=== PATIENT | male | born 1975 | race Caucasian/White ===

== ENCOUNTER 2016-11-08 00:33 | Emergency (ER) | payer OTHER ==
[2016-11-08 00:42] VITALS: BP 117/78
== END 2016-11-08 03:18 | disposition left against medical advice (07) ==
LOC: ED 00:33
DX: Z53.21 Procedure and treatment not carried out due to patient leaving prior to being seen by health care provider (principal)

== ENCOUNTER 2017-10-20 19:01 | Emergency (ER) | payer SELFPAY ==
[~2017-10-20] VITALS: Ht 160 cm; Wt 62.2 kg
[2017-10-20 19:06] VITALS: Ht 160 cm; Wt 62.2 kg
[2017-10-20 20:20] VITALS: BP 120/66
== END 2017-10-20 20:20 | disposition home or self-care (01) ==
LOC: ED 19:01
DX: H00.022 Hordeolum internum right lower eyelid (principal)